=== PATIENT | male | born 1965 | race Caucasian/White ===

== ENCOUNTER 2023-05-12 06:26 | Emergency (ER) | payer OTHER ==
[~2023-05-12] VITALS: Ht 195.6 cm; Wt 108.9 kg
[~2023-05-12 06:26] MED LIST: CIPRO500 MG PO; FENOFIBRATE160 MG PO; GLIPIZIDE10 MG PO; HYDROCODON-ACE1 EA10 PO; JANUVIA100 MG PO; JARDIANCE25 MG PO; KEFLEX500 MG PO; LOSARTAN-HCTZ1 EAC1 PO; METFORMIN HCL1000 MG PO; ONDANSETRON ODT4 MG PO
[2023-05-12] MEDS ORDERED: METOPROLOL SUC100 MG PO (06:38)
[2023-05-12] MEDS ORDERED: ATORVASTATIN CA40 MG PO (06:38)
[2023-05-12] MEDS ORDERED: OZEMPIC0.25 MG/02 SQ (06:38)
[2023-05-12 07:24] VITALS: BP 167/89
== END 2023-05-12 07:24 | disposition home or self-care (01) ==
LOC: ED 06:26
DX: M47.26 Other spondylosis with radiculopathy, lumbar region (principal); E11.9 Type 2 diabetes mellitus without complications; Z79.84 Long term (current) use of oral hypoglycemic drugs; Z79.85 Long-term (current) use of injectable non-insulin antidiabetic drugs; Z79.899 Other long term (current) drug therapy
CPT/HCPCS: 72100; 96372; 99283-25; J1885; J3360

== ENCOUNTER 2024-12-21 20:58 | Emergency (ER) | payer OTHER ==
[~2024-12-21] VITALS: Ht 190.5 cm; Wt 112.3 kg
[~2024-12-21 20:58] MED LIST changes: +ATORVASTATIN CA40 MG PO; +METOPROLOL SUC100 MG PO; +OZEMPIC0.25 MG/02 SQ
[2024-12-21] MEDS ORDERED: KETOROLAC TROMETHAMINE 30 MG/ML VIAL IV ONE (22:00)
[2024-12-21 22:29] LABS: BASOPHILS 0.7 % (0.2-1.2); EOSINOPHILS 3.2 % (0.8-7.0); LYMPHOCYTES 21.2 % (21.8-53.1); MCH 31.4 PG (25.7-32.2); MCHC 35.0 g/dL (32.3-36.5); MCV 89.8 fL (79.0-92.2); MONOCYTES 6.0 % (5.3-12.2); NEUTROPHILS 68.6 % (34.0-67.9); RBC 4.01 M/uL (4.63-6.08)
[2024-12-21 22:42] LABS: ALT (SGPT) 13.0 U/L (14-59); AST (SGOT) 18.0 U/L (15-37); GLOMERULAR FILTRATION RATE,EST 50.0 mL/min (>60); PROTEIN, TOTAL 7.4 g/dL (6.4-8.2); UREA NITROGEN 31.0 mg/dL (7-18)
[2024-12-22] MEDS ORDERED: HYDROCODON-ACE1 EA10 PO (00:36)
[2024-12-22 00:40] VITALS: BP 150/77
[2024-12-22] MEDS ORDERED: HYDROCODONE BIT/ACETAMINOPHEN 5/325 MG 1 TAB HOME.PACK PO ONE (00:45)
== END 2024-12-22 00:40 | disposition home or self-care (01) ==
LOC: ED 20:58
PROVIDERS: Family Medicine
DX: S20.219A Contusion of unspecified front wall of thorax, initial encounter (principal); W19.XXXA Unspecified fall, initial encounter; E11.9 Type 2 diabetes mellitus without complications; Z79.899 Other long term (current) drug therapy
CPT/HCPCS: 36415; 71250; 71260; 74177; 80053; 85025; 96374; 99284-25; A9270; J1885; Q9967